=== PATIENT | female | born 1965 | race Caucasian/White ===

== ENCOUNTER 2016-08-22 04:28 | Emergency (ER) | payer MEDICAID ==
[~2016-08-22] VITALS: Wt 97.0 kg
[2016-08-22] MEDS ORDERED: SOD CHLORIDE 0.9% 1,000 ML IV STA (04:58)
[2016-08-22] MEDS ORDERED: ONDANSETRON 4 MG INJ IV STA ×2 (04:58→08:46)
[2016-08-22] MEDS ORDERED: morphine 2 MG INJ IV STA (04:58)
[2016-08-22 05:36] LABS: ADD SCAN DIFF NO
[2016-08-22 05:39] LABS: BASOPHIL # 0.1 10^3/ul (0.0-0.1); EOSINOPHILS # 0.4 10^3/ul (0.0-0.5); EOSINOPHILS % 4.8 % (0.0-7.0); HEMATOCRIT 35.2 % (37.0-47.0); LYMPHOCYTES # 2.8 10^3/ul (0.8-2.9); LYMPHOCYTES % 31.4 % (15.0-51.0); MEAN CORPUSCULAR HEMOGLOBIN 24.8 pg (29.0-33.0); MEAN CORPUSCULAR HGB CONC 31.3 g/dl (32.0-37.0); MEAN CORPUSCULAR VOLUME 79.3 fl (82.0-101.0); MEAN PLATELET VOLUME 10.4 fl (7.4-10.4); MONOCYTE # 0.7 10^3/ul (0.3-0.9); MONOCYTES % 7.4 % (0.0-11.0); NEUTROPHIL # 4.9 10^3/ul (1.6-7.5); NEUTROPHILS % 55.2 % (39.0-77.0); PLATELET COUNT 352 10^3/UL (140-415); RED BLOOD COUNT 4.44 10^6/ul (4.20-5.40); RED CELL DISTRIBUTION WIDTH 15.3 % (11.5-14.5)
[2016-08-22 05:59] LABS: ALBUMIN 4.5 g/dl (3.3-4.9); ALBUMIN/GLOBULIN RATIO 1.36; BILIRUBIN,INDIRECT 0.1 mg/dl (0-1.1); BILIRUBIN,TOTAL 0.1 mg/dl (0.2-1.3); CREATININE 0.68 mg/dl (0.44-1.00); POTASSIUM 4.3 mmol/L (3.5-5.1); TOTAL PROTEIN 7.8 g/dl (6.1-8.1)
[2016-08-22] MEDS ORDERED: morphine 2 MG INJ IV ONE (06:00)
[2016-08-22 06:06] LABS: ADD UMIC NO; URINE BILIRUBIN (Dip) NEGATIVE (NEGATIVE); URINE BLOOD (Dip) NEGATIVE (NEGATIVE); URINE COLOR LT. YELLOW (YELLOW); URINE GLUCOSE (Dip) NEGATIVE (NEGATIVE); URINE KETONES (Dip) NEGATIVE (NEGATIVE); URINE LEUKOCYTE ESTERASE (Dip) NEGATIVE (NEGATIVE); URINE NITRITE (Dip) NEGATIVE (NEGATIVE); URINE TOTAL PROTEIN (Dip) NEGATIVE (NEGATIVE); URINE UROBILINOGEN (Dip) 0.2 E.U./dL (0.1-1.0)
--- NOTE | 2016-08-22 06:29 | RADRPT ---
PROCEDURE: CT ABDOMEN/PELVIS WITHOUT CONTRAST CLINICAL INDICATION: 50-year-old female with abdominal pain. TECHNIQUE: The study was performed utilizing a GE zandapeed VCT 64-slice CT scanner. Direct axia l sections were obtained through the abdomen and pelvis without the use of intravenous contrast mate rial. Sagittal and coronal reformations were obtained. One or more of the following dose reduction t echniques were utilized: automated exposure control, adjustment of the mA and/or kV according to pat ient's size or use of iterative reconstruction technique. The images were reviewed on a PACS workst [facility]. CTD/vol = 23.4 mGy; Total Exam DLP = 1373.1 mGy-cm. COMPARISON: None. FINDINGS: There is trace bibasilar subsegmental atelectasis. There is no evidence for significant pleural eff usion. The liver has a normal size and contour without focal areas of abnormal density. No intrahep atic nor extrahepatic biliary ductal dilatation is seen. The gallbladder contains multiple calcified gallstones without significant wall thickening or pericholecystic fluid. The pancreas is without a reas of abnormal attenuation. The spleen is identified and has a normal size without abnormal densi ty. The adrenal glands are unremarkable. The kidneys are without abnormal density. No hydroureterone phrosis nor nephroureterolithiasis is evident. The urinary bladder contains urine. There is an upper abdominal ventral hernia with an opening of 1.9 x 2.5 cm containing fat. There is a large umbilica l region hernia with an opening of 19 x 23 mm containing fat. There is fecalization of the distal sm all bowel as well as mild retained stool identified within the colon without obstruction. The appendix is visualized and is without abnormal thickening or surrounding inflammatory reaction. The uterus appears to be enlarged and lobular measuring approximately 12.9 x 7.4 x 8.2 cm. Ovarian cyst measuring 1.9 x 1.4 x 2.0 cm. There is no significant free fluid. The aortoiliac vessels are without aneurysmal dilatation. At L4-5 there is anterolisthesis of approximately 20% with diffuse disk bulg e and marked bilateral facet arthropathy resulting in mild bilateral foraminal and severe central sp inal stenosis. IMPRESSION: 1. Cholelithiasis. 2. No CT evidence for obstructive uropathy or renal calculi. 3. Fecalization of the small bowel with retained stool within the proximal colon without obstructio n. 4. No CT evidence for appendicitis. 5. Small upper abdominal ventral hernia containing fat. 6. Prominent umbilical hernia containing fat. 7. Enlarged lobular uterus. 8. Right ovarian cyst. 9. L4-5 spondylolisthesis (20%) with marked facet arthropathy and discogenic disease resulting in m ild bilateral foraminal stenosis and severe central spinal stenosis. .Adiel Soto MD, MD Date Time Electronically viewed and signed by .Adiel Soto MD, MD on 08/22/2016 06:29 .M/
--- NOTE | 2016-08-22 07:44 | RADRPT ---
PROCEDURE: ULTRASOUND LIMITED ABDOMEN CLINICAL INDICATION: 50-year-old female with abdominal pain. TECHNIQUE: Multiple sonographic of the right upper quadrant of the abdomen were obtained. The imag es were reviewed on a PACS workstation. COMPARISON: CT abdomen/pelvis August 22, 2016. FINDINGS: The proximal inferior vena cava and aorta are unremarkable. The pancreas is partially visualized and is otherwise without focal abnormal echogenicity. The liver displays normal echogenicity. The liver measures 19.5 cm in length. No evidence of intrah epatic biliary ductal dilatation is seen. The portal and hepatic veins are unremarkable. The gallbladder contains multiple shadowing stones with the largest measuring approximately 12 mm. The gallbladder wall is thickened measuring 6.6 mm. No pericholecystic fluid is seen. The common vanesa e duct measures 5.6 mm and is not dilated. The right kidney displays normal echogenicity. The right kidney measures 10.3 cm in maximal length. No caliectasis or hydronephrosis is seen. No free fluid is seen. IMPRESSION: Cholelithiasis with thickened gallbladder wall. .Adiel Soto MD, Date Time Electronically viewed and signed by .Adiel Soto MD, MD on 08/22/2016 07:44 .M/
[2016-08-22] MEDS ORDERED: CIPR500T4 PO (08:45)
[2016-08-22] MEDS ORDERED: DICY10CA60 PO (08:45)
[2016-08-22] MEDS ORDERED: HYDR-902 PO (08:45)
[2016-08-22] MEDS ORDERED: HYDROmorphONE 1 MG/ML SYG IV STA (08:46)
--- NOTE | 2016-08-22 08:50 | ERD ---
ER Documentation Chief Complaint Date/Time DATE: 08/22/16 TIME: 08:47 Chief Complaint Epigastric pain that started around 2300 HPI This is a 50-year-old female complains of epigastric and right upper quadrant pain radiating to the right back at 11 PM last night. Describes the pain is sharp and crampy. She has nausea but no vomiting or diarrhea. No prior studies in the past. The patient did have a high fat meal last night. No chest pain or shortness of breath. Currently the pain is mild ROS All systems reviewed and are negative except as per history of present illness. Medications Home Meds Active Scripts Ciprofloxacin Hcl* (Ciprofloxacin Hcl*) 500 Mg Tablet, 500 MG PO BID for 7 Days , TAB Prov:CHESTER SANCHEZS Fracisco DO 08/22/16 Hydrocodone/Acetaminophen ([place] 10-325 Tablet) 1 Each Tablet, 1 TAB PO Q6H Y for PAIN, #20 TAB Prov:CHESTER SANCHEZS Fracisco DO 08/22/16 Dicyclomine Hcl* (Bentyl*) 10 Mg Capsule, 20 MG PO QID, #60 CAP Prov:ANA SANCHEZSTKIKOS A. DO 08/22/16 Allergies Allergies: Coded Allergies: No Known Allergy (Unverified , 08/22/16) PMhx/Soc Medical and Surgical Hx: pt denies Surgical Hx Hx Alcohol Use: No Hx Substance Use: No Hx Tobacco Use: No Smoking Status: Never smoker FmHx Family History: No coronary disease Physical Exam Vitals Vital Signs Date Time Temp Pulse Resp B/P Pulse Ox O2 Delivery O2 Flow Rate FiO2 08/22/16 05:48 69 12 115/74 100 Room Air 08/22/16 04:30 99.0 81 20 128/81 98 Physical Exam Const: Well-developed, well-nourished Head: Atraumatic, normocephalic Eyes: Normal Conjunctiva, PERRLA, EOMI, normal sclera, no nystagmus ENT: Normal External Ears, Nose and Mouth, moist mucus membranes. Neck: Full range of motion. No meningismus, no lymphadenopathy. Resp: Clear to auscultation bilaterally, no wheezing, rhonchi, rales Cardio: Regular rate and rhythm, no murmurs, S1 S2 present Abd: Soft, mild epigastric and right upper quadrant tenderness, non distended. Normal bowel sounds, no guarding or rebound, no pulsitile abdominal masses or bruits Skin: No petechiae or rashes, no ecchymosis , no maculopapular rash Back: No midline or flank tenderness Ext: No cyanosis, or edema, FROM x 4, normal inspection, neurovascularly intact x 4 Neur: Awake and alert, STR 5/5 x 4, sensation intact x 4, no focal findings, cerebellum intact Psych: Normal Mood and Affect Result Diagram: 08/22/1652108/22/16521 Results 24 hrs Laboratory Tests Test 08/22/16 05:22 08/22/16 05:45 White Blood Count 9.010^3/ul Red Blood Count 4.4410^6/ul Hemoglobin 11.0g/dl Hematocrit 35.2% Mean Corpuscular Volume 79.3fl Mean Corpuscular Hemoglobin 24.8pg Mean Corpuscular Hemoglobin Concent 31.3g/dl Red Cell Distribution Width 15.3% Platelet Count 30355^3/UL Mean Platelet Volume 10.4fl Neutrophils % 55.2% Lymphocytes % 31.4% Monocytes % 7.4% Eosinophils % 4.8% Basophils % 1.0% Nucleated Red Blood Cells % 0.0/100WBC Neutrophils # 4.910^3/ul Lymphocytes # 2.810^3/ul Monocytes # 0.710^3/ul Eosinophils # 0.410^3/ul Basophils # 0.110^3/ul Nucleated Red Blood Cells # 0.010^3/ul Sodium Level 140mmol/L Potassium Level 4.3mmol/L Chloride Level 105mmol/L Carbon Dioxide Level 26mmol/L Anion Gap 13 Blood Urea Nitrogen 12mg/dl Creatinine 0.68mg/dl Glucose Level 100mg/dl Calcium Level 9.0mg/dl Total Bilirubin 0.1mg/dl Direct Bilirubin 0.00mg/dl Indirect Bilirubin 0.1mg/dl Aspartate Amino Transf (AST/SGOT) 25IU/L Alanine Aminotransferase (ALT/SGPT) 27IU/L Alkaline Phosphatase 80IU/L Total Protein 7.8g/dl Albumin 4.5g/dl Globulin 3.30g/dl Albumin/Globulin Ratio 1.36 Lipase 99U/L Urine Color LT. YELLOW Urine Clarity CLEAR Urine pH 6.0 Urine Specific Roby 1.020 Urine Ketones NEGATIVE Urine Nitrite NEGATIVE Urine Bilirubin NEGATIVE Urine Urobilinogen 0.2 E.U./dL Urine Leukocyte Esterase NEGATIVE Urine Hemoglobin NEGATIVE Urine Glucose NEGATIVE% Urine Total Protein NEGATIVE Current Medications Medications (Trade) Dose Ordered Sig/Abeba Route PRN Reason Start Time Stop Time Status Last Admin Dose Admin Sodium Chloride (NS) 1,000 ml @ 1,000 mls/hr Q1H STAT IV 08/22/16 04:58 08/22/16 05:57 DC 08/22/16 05:18 Morphine Sulfate (morphine) 2 mg ONCE STAT IV 08/22/16 04:58 08/22/16 04:59 DC 08/22/16 05:18 Ondansetron HCl (Zofran Inj) 4 mg ONCE STAT IV 08/22/16 04:58 08/22/16 04:59 DC 08/22/16 05:17 Morphine Sulfate (morphine) 2 mg ONCE ONCE IV 08/22/16 06:00 08/22/16 06:01 DC 08/22/16 05:44 Procedures/MDM PROCEDURE: ULTRASOUND LIMITED ABDOMEN CLINICAL INDICATION: 50-year-old female with abdominal pain. TECHNIQUE: Multiple sonographic of the right upper quadrant of the abdomen were obtained. The images were reviewed on a PACS workstation. COMPARISON: CT abdomen/pelvis August 22, 2016. FINDINGS: The proximal inferior vena cava and aorta are unremarkable. The pancreas is partially visualized and is otherwise without focal abnormal echogenicity. The liver displays normal echogenicity. The liver measures 19.5 cm in length. No evidence of intrahepatic biliary ductal dilatation is seen. The portal and hepatic veins are unremarkable. The gallbladder contains multiple shadowing stones with the largest measuring approximately 12 mm. The gallbladder wall is thickened measuring 6.6 mm. No pericholecystic fluid is seen. The common bile duct measures 5.6 mm and is not dilated. The right kidney displays normal echogenicity. The right kidney measures 10.3 cm in maximal length. No caliectasis or hydronephrosis is seen. No free fluid is seen. IMPRESSION: Cholelithiasis with thickened gallbladder wall. .Adiel Soto MD, MD Date Time Electronically viewed and signed by .Adiel Soto MD, MD on 08/22/2016 07:44 .M/ CC: REDDY SANCHEZ DO . PROCEDURE: CT ABDOMEN/PELVIS WITHOUT CONTRAST CLINICAL INDICATION: 50-year-old female with abdominal pain. TECHNIQUE: The study was performed utilizing a GE [employer] VCT 64-slice CT scanner. Direct axial sections were obtained through the abdomen and pelvis without the use of intravenous contrast material. Sagittal and coronal reformations were obtained. One or more of the following dose reduction techniques were utilized: automated exposure control, adjustment of the mA and/ or kV according to patient's size or use of iterative reconstruction technique. The images were reviewed on a PACS workstation. CTD/vol = 23.4 mGy; Total Exam DLP = 1373.1 mGy-cm. COMPARISON: None. FINDINGS: There is trace bibasilar subsegmental atelectasis. There is no evidence for significant pleural effusion. The liver has a normal size and contour without focal areas of abnormal density. No intrahepatic nor extrahepatic biliary ductal dilatation is seen. The gallbladder contains multiple calcified gallstones without significant wall thickening or pericholecystic fluid. The pancreas is without areas of abnormal attenuation. The spleen is identified and has a normal size without abnormal density. The adrenal glands are unremarkable. The kidneys are without abnormal density. No hydroureteronephrosis nor nephroureterolithiasis is evident. The urinary bladder contains urine. There is an upper abdominal ventral hernia with an opening of 1.9 x 2.5 cm containing fat. There is a large umbilical region hernia with an opening of 19 x 23 mm containing fat. There is fecalization of the distal small bowel as well as mild retained stool identified within the colon without obstruction. The appendix is visualized and is without abnormal thickening or surrounding inflammatory reaction. The uterus appears to be enlarged and lobular measuring approximately 12.9 x 7.4 x 8.2 cm. Ovarian cyst measuring 1.9 x 1.4 x 2.0 cm. There is no significant free fluid. The aortoiliac vessels are without aneurysmal dilatation. At L4-5 there is anterolisthesis of approximately 20% with diffuse disk bulge and marked bilateral facet arthropathy resulting in mild bilateral foraminal and severe central spinal stenosis. IMPRESSION: 1. Cholelithiasis. 2. No CT evidence for obstructive uropathy or renal calculi. 3. Fecalization of the small bowel with retained stool within the proximal colon without obstruction. 4. No CT evidence for appendicitis. 5. Small upper abdominal ventral hernia containing fat. 6. Prominent umbilical hernia containing fat. 7. Enlarged lobular uterus. 8. Right ovarian cyst. 9. L4-5 spondylolisthesis (20%) with marked facet arthropathy and discogenic disease resulting in mild bilateral foraminal stenosis and severe central spinal stenosis. .Adiel Soto MD, MD Date Time Electronically viewed and signed by .Adiel Soto MD, MD on 08/22/2016 06:29 .M/ CC: CAROLYN BOND DO Patient's labs are unremarkable. LFTs are normal. Will discharge home with surgery follow-up and discussed home diet care. Discharged on Bentyl, Cipro, [place]. No evidence of cholecystitis Departure Diagnosis: Primary Impression: Gallstones Condition: Stable Patient Instructions: Biliary Colic With Gallstone (Confirmed) Referrals: ROYER FOOTE M.D., APOSTOLOS A. DO Aug 22, 2016 08:50
[2016-08-22] MEDS ORDERED: DICYCLOMINE 20 MG INJ IM ONE (09:00)
[2016-08-22 10:41] VITALS: BP 116/78; PULSE 79; RESP 17; TEMP 98.2
== END 2016-08-22 10:42 | disposition home or self-care (01) ==
LOC: E/R 04:28
DX: K80.20 Calculus of gallbladder without cholecystitis without obstruction (principal); R11.0 Nausea
CPT/HCPCS: 36415; 74176; 76705; 80053; 81003; 83690; 85025; 96372; 96374; 96375; 96376; J0500; J1170; J2270; J2405; J7030; Z7502